=== PATIENT | female | born 1960 | race Caucasian/White ===

== ENCOUNTER → 2021-08-25 | Outpatient (CLI) | payer BC | LOC: US 09:16 | DX: R11.0 Nausea (principal); R53.1 Weakness; R10.11 Right upper quadrant pain | CPT/HCPCS: 76700 ==

== ENCOUNTER → 2022-01-22 | Outpatient (CLI) | payer BC | LOC: EXRD 15:40 | DX: E03.9 Hypothyroidism, unspecified (principal) | CPT/HCPCS: 76536 ==

== ENCOUNTER → 2022-03-23 | Outpatient (CLI) | payer BC | LOC: MRI 09:44 | DX: H53.8 Other visual disturbances (principal); R90.82 White matter disease, unspecified | CPT/HCPCS: 36415; 70553; 82565; A9577 ==

== ENCOUNTER → 2022-03-28 | Outpatient (CLI) | payer BC | LOC: MRI 08:30 | DX: M79.601 Pain in right arm (principal); M79.602 Pain in left arm; R20.2 Paresthesia of skin; M50.30 Other cervical disc degeneration, unspecified cervical region; M48.02 Spinal stenosis, cervical region; M25.78 Osteophyte, vertebrae | CPT/HCPCS: 72156; A9577 ==

== ENCOUNTER → 2022-05-30 | Outpatient (CLI) | payer BC | LOC: KOH-I 08:06 | DX: R06.00 Dyspnea, unspecified (principal) | CPT/HCPCS: 71046 ==

== ENCOUNTER → 2022-06-13 | Outpatient (CLI) | payer BC | LOC: HEART 5 08:21 | DX: R00.2 Palpitations (principal) ==

== ENCOUNTER → 2022-06-26 | Outpatient (CLI) | payer BC | LOC: KOH-I 08:00 | DX: R06.00 Dyspnea, unspecified (principal) | CPT/HCPCS: 71250 ==